=== PATIENT | female | born 1965 | race African-American/Black ===

== ENCOUNTER 2017-03-05 12:39 | Emergency (ER) | payer OTHER ==
[~2017-03-05] VITALS: Ht 167.6 cm; Wt 70.6 kg
[~2017-03-05 12:39] MED LIST: ADVIL,NUPRIN,M200 MG PO; DEXILANT30 MG PO; FLEXERIL5 MG PO; LUTERA1 EAC1 PO; MEDROL DOSEPAK4 MG PO; MULTIVITAMIN1 EAC2 PO; NORCO 5/3251 TABLET PO
[2017-03-05 13:44] LABS: HEMATOCRIT 39.7 % (36.0-46.0); MCHC 32.7 G/DL (30.0-36.0); MCV 91.5 FL (83-99); PLATELET COUNT 241 K/uL (156-360); RBC DIS.WIDTH-CV 12.3 % (11.8-14.6); RBC DIS.WIDTH-SD 41.4 % (39-53); RED BLOOD COUNT 4.34 M/uL (3.80-5.20); WHITE BLOOD COUNT 4.4 K/uL (4.1-10.2)
[2017-03-05 13:52] LABS: CHLORIDE 109 mEq/L (99-109); POTASSIUM 4.4 mEq/L (3.7-5.4); SODIUM 143 mEq/L (136-147)
[2017-03-05 13:54] LABS: GLUCOSE 90 mg/dL (70-99)
[2017-03-05 13:55] LABS: ANION GAP 7 MEQ/L (2-14)
[2017-03-05 13:57] LABS: GFR ESTIMATE (CALCULATED) > 59 mL/min/
[2017-03-05 13:58] LABS: UREA NITROGEN (BUN) 10 mg/dL (9-23)
[2017-03-05 14:06] LABS: TROP-I INTERPRETATION NEGATIVE; TROPONIN-I < 0.01 ng/mL (0.0-0.30)
[2017-03-05] MEDS ORDERED: MOTRIN600 MG PO (17:09)
[2017-03-05] MEDS ORDERED: AMBIEN10 MG PO (17:58)
[2017-03-05 18:44] VITALS: BP 113/68
== END 2017-03-05 18:45 | disposition home or self-care (01) ==
LOC: EME 12:39
DX: R07.89 Other chest pain (principal); R42 Dizziness and giddiness; R51 Headache; R94.31 Abnormal electrocardiogram [ECG] [EKG]; R06.02 Shortness of breath; R11.0 Nausea; R05 Cough
CPT/HCPCS: 71020; 80048; 84484; 85027; 93005; 99281; 99284